=== PATIENT | female | born 1955 | race Caucasian/White ===

== ENCOUNTER 2024-01-25 13:48 | Outpatient (REF) | payer BC, SELFPAY ==
--- NOTE | ~2024-01-25 | XR_ITS ---
EXAMINATION: XR LUMBOSACRAL SPINE WITH OBLIQUES CLINICAL INFORMATION: Spondylolisthesis. COMPARISON: None available. TECHNIQUE: AP, lateral neutral, flexion and extension views of the lumbar spine. FINDINGS: Dextroscoliosis of the lumbar spine. Radiopaque device overlies the left sacroiliac joint. Atherosclerotic aortic calcifications. Advanced facet arthritis in the [id number] lumbar spine. Lumbar vertebral body heights are preserved. Bones are diffusely demineralized. Grade 1 anterolisthesis of L4 on L5 with flexion and extension. Multilevel lumbar spondylosis with loss of disc space height at L3-L4, L4-L5, and L5-S1. XR/XR lumbar spine 4V min IMPRESSION: 1. Multilevel lumbar spondylosis with moderate loss of disc space height at L3-L4, L4-L5, and L5-S1. 2. Grade 1 anterolisthesis of L4 on L5 with flexion and extension.
== END 2024-01-25 13:49 | disposition home or self-care (01) ==
LOC: HO.HOSX 13:48
PROVIDERS: PCP Nurse Practitioner Gerontology; Visit Provider Neurological Surgery
DX: M43.16 Spondylolisthesis, lumbar region (principal); M48.062 Spinal stenosis, lumbar region with neurogenic claudication
CPT/HCPCS: 72110

== ENCOUNTER 2024-01-25 13:48 | Outpatient (AMB) | payer BC, SELFPAY ==
--- NOTE | 2024-01-25 14:00 | A.SPINEOV_ITS ---
Intake Visit Reasons: back pain/spinal stenosis Intake Note: Ms. Davila is here today c/o low back pain and right hip/knee pain. Wealth Management Consultant Required: No Allergies No Known Allergies Allergy (Verified 01/25/24 14:02) Assessment & Plan Assessment & Plan (1) Spondylolisthesis, lumbar region: Code(s): M43.16 - Spondylolisthesis, lumbar region Category: Medical Plan: Dear colleague Thank you for referring Michelle Davila to the office today with a chief complaint of right-sided back pain radiating to her hip and knee. HPI: This 68-year-old female has been suffering from lower back pain radiating to her right hip and knee with walking and standing. Sitting down usually improves the symptoms. The pain is not always in the same location but always on the right side. She was seen at [facility] where she was offered a lumbar fusion L4-5. She decided to continue conservative treatments with physical therapy chiropractic therapy and an epidural steroid injection which provided no relief. She is also using computer guided traction. s PMH: Hypertension, hypercholesterolemia Medications: Losartan, potassium hydrochlorothiazide sertraline and vitamins Allergies: NKDA Social history: Nonsmoker Physical Exam: Pleasant female. No pain on palpation of the lumbar spine. Straight leg raise is negative. Motor, sensory and reflex examinations are intact. Radiological Studies: MRI of the lumbar spine done in [place] on 11/11/2023 shows a grade 1 L4-5 spondylolisthesis with moderate to severe central stenosis and severe right L4-5 lateral recess stenosis compromising the L5 nerve root. Dynamic lumbar x-rays show again the grade 1 L4-5 spondylolisthesis without instability. Impression/Plan: This 68-year-old female suffering from unilateral neurogenic claudication, right side due to severe L4-5 lateral recess stenosis compromising the L5 nerve root. I think does symptoms explain the radiating pain to the right side of her back into in her hip but I do not know if this is also explaining her knee pain. The patient herself also think that the knee pain may not be related to the spine. The symptoms are not responding to conservative treatments and therefore I offered her a right L4-5 lumbar decompression. I do not think that a lumbar fusion is required at this time due to the absence of instability and lack of axial back pain. She is tentatively scheduled for 07/06/2024. She will obtain preoperative clearance from her primary care physician. Thank you for allowing me to participate in your patients care. total time spent was 50 minutes in counseling ,coordination of plan, personal review of imaging, surgical decision making and subsequent plan Charli Covington MD, PhD Spine Fellowship Trained Neurosurgeon Director, [facility] (2) Neurogenic claudication due to lumbar spinal stenosis: Code(s): M48.062 - Spinal stenosis, lumbar region with neurogenic claudication Category: Medical Plan: d Orders: Orders XR lumbar spine 4V min Today M43.16 - Spondylolisthesis, lumbar region, M48.062 - Spinal stenosis, lumbar region with neurogenic claudication Coding Level of Care Code New Pt Level 4 (04127) Diagnoses Spondylolisthesis, lumbar region M43.16 Neurogenic claudication due to lumbar spinal stenosis M48.062
== END 2024-01-25 14:59 | disposition home or self-care (01) ==
PROVIDERS: PCP Nurse Practitioner Gerontology; Visit Provider Neurological Surgery
DX: M43.16 Spondylolisthesis, lumbar region (principal); M48.062 Spinal stenosis, lumbar region with neurogenic claudication
CPT/HCPCS: 99204